=== PATIENT | male | born 1950 | race Caucasian/White ===

== ENCOUNTER 2017-02-15 22:22 | Observation (INO) | payer BC ==
[2017-02-15 22:46] LABS: #Eosinphils 0.1 thou/uL (0.0-0.7); #Lymphocytes 1.7 thou/uL (1.20-3.40); #Monocytes 0.7 thou/uL (0.11-0.59); #Neutrophils 12.3 thou/uL (1.40-6.50); %Basophils 0.1 % (0.0-1.0); %Eosinophils 0.7 % (0.0-10.0); %Lymphocytes 11.4 % (21.0-51.0); %Monocytes 4.4 % (0.0-10.0); Hematocrit 47.1 % (42.0-52.0); White Blood Cell (WBC) Count 14.8 thou/uL (4.8-10.8)
--- NOTE | 2017-02-15 23:04 | RAD ---
EXAM: CHEST ONE VIEW 02/15/17 HISTORY: Sharp chest pain and hypertension. FINDINGS: Portable upright chest demonstrates an enlarged cardiac silhouette. The pulmonary vessels are slight ly prominent. Costophrenic angles are clear. No masses or consolidation. No pneumothorax or osseous abnormalities. IMPRESSION: Cardiomegaly. Mild pulmonary vascular prominence. POS: [facility]
[2017-02-15 23:09] LABS: ALT (SGPT) 18 U/L (8-55); AST (SGOT) 15 U/L (5-34); Alkaline Phosphatase 93 U/L (40-150); Anion Gap 16 mmol/L (10-20); BUN (Urea Nitrogen) 13 mg/dL (8.4-25.7); Bilirubin, Total 0.5 mg/dL (0.2-1.2); Calc. Creatinine Clearance 0 mL/min (70-130); Calcium 9.3 mg/dL (7.8-10.44); Carbon Dioxide 29 mmol/L (23-31); Chloride 100 mmol/L (98-107); Estimated GFR-MDRD Greater than 90; Globulin 3.4 g/dL (2.4-3.5); Protein, Total 7.8 g/dL (5.8-8.1)
[2017-02-15 23:17] LABS: Troponin I Less than 0.010 ng/mL (< 0.028)
[2017-02-15] MEDS ORDERED: Mag-Al 1200 mg/1200 mg/30 ML UDCUP ONE (23:48)
[2017-02-15] MEDS ORDERED: Lidocaine Viscous Sol 2% 15 ml UD Cup ONE (23:48)
[2017-02-16] MEDS ORDERED: Nitroglycerin 0.4 MG TAB (25 Tab Bottle) ONE (00:38)
[2017-02-16] MEDS ORDERED: Nitroglycerin 2% Ointment 1 INCH/1 GM Packet ONE (00:38)
[2017-02-16] MEDS ORDERED: Enoxaparin Sodium 100 MG/ML SYRINGE ONE (00:45)
[2017-02-16] MEDS ORDERED: Enoxaparin Sodium 80 MG/0.8 ML SYRINGE ONE (01:11)
[2017-02-16] MEDS ORDERED: Enoxaparin Sodium 40 MG/0.4 ML SYRINGE ONE (01:11)
[2017-02-16 01:46] LABS: Troponin I Less than 0.010 ng/mL (< 0.028)
[2017-02-16] MEDS ORDERED: Fentanyl 100 MCG/2 ML VIAL ONE ×2 (02:42→14:00)
[2017-02-16] MEDS ORDERED: Ketorolac Tromethamine 30 MG/ML VIAL ONE (03:50)
[2017-02-16 04:42] LABS: Troponin I Less than 0.010 ng/mL (< 0.028)
[2017-02-16] MEDS ORDERED: Ondansetron HCl/PF 4 MG/2 ML Vial IVP PRN ×2 (04:58→11:39)
[2017-02-16] MEDS ORDERED: Ondansetron ODT 4 MG TAB SL PRN (04:58)
[2017-02-16] MEDS ORDERED: Acetaminophen 325 MG TAB PO PRN ×2 (04:58→11:39)
[2017-02-16] MEDS ORDERED: Nitroglycerin 2% Ointment 1 INCH/1 GM Packet TOP SCH ×2 (05:30→06:00)
--- NOTE | 2017-02-16 05:34 | PDOC.EVN ---
Event Note - Event Note Event Note: [id number] H&P Dictated 1. Chest pain 2. H/O HTN 3. H/O BPH Plan: see orders
[2017-02-16] MEDS ORDERED: Potassium Chloride 20 MEQ TAB PO SCH (05:45)
[2017-02-16 06:31] LABS: Troponin I Less than 0.010 ng/mL (< 0.028)
[2017-02-16 07:25] VITALS: BMI 38.3
--- NOTE | 2017-02-16 08:21 | HP ---
DATE OF ADMISSION: 02/16/2017 CHIEF COMPLAINT: Chest pain. HISTORY OF PRESENT ILLNESS: The patient is a 66-year-old male with past medical history of hypertension presenting complaining of chest pain. Chest pain started yesterday evening, substernal pressure kind of pain, 8/10, relieved with some pain medication. It does not radiate anywhere. Denies any nausea, denies any trouble breathing, denies any dizziness, denies lightheadedness. The patient had stress test and cardiac catheterization done last year and it was tender to palpation. Denies any fever, denies any chills, denies any cough, denies sputum production, denies any other complaints. PAST MEDICAL HISTORY: Hypertension, benign prostatic hypertrophy. PAST SURGICAL HISTORY: Colon mass removal. FAMILY HISTORY: Positive for hypertension. SOCIAL HISTORY: Reviewed. REVIEW OF SYSTEMS: CONSTITUTIONAL: Denies any fever, denies any hearing problems. Denies any hearing loss. Denies any pain. CARDIOVASCULAR: Positive for chest pain. RESPIRATORY: Denies any cough, denies dyspnea CRANIAL NERVE SYSTEM: Denies syncope. GASTROINTESTINAL: Denies any vomiting. MUSCULOSKELETAL: Denies any joint deformities INTEGUMENTARY: Denies rash. PSYCH: Denies anxiety. All other review of systems are reviewed and are negative . PHYSICAL EXAMINATION: VITAL SIGNS: At the time of H\T\P performed, blood pressure is 149/83, heart rate 104, respiration 16, pulse ox 95% on 2 liters, temperature 98.9. GENERAL: The patient appears comfortable. HEENT: Pupils are equal, round, and react. ENT is normal. Teeth intact. Tongue is moist. NECK: Supple. No JVD. CARDIOVASCULAR: S1, S2 present. Regular rate and rhythm. No murmurs, no rubs , no gallops. RESPIRATORY: No wheezing, no rhonchi. Breath sounds bilaterally. ABDOMEN: Soft, nontender, no guarding, no organomegaly, no masses felt. INTEGUMENTARY: No rashes seen. PSYCHIATRIC: Mood appears normal. MUSCULOSKELETAL: No edema. CRANIAL NERVE SYSTEM: Awake, follows command. Strength intact, sensory intact. LABORATORY DATA: Sodium 142, potassium 3.3, chloride 100, CO2 10, BUN 13, creatinine 0.83, troponin less than 0.01 x3 sets. Serum protein 7.8, albumin 4.4. White count 14.8, hemoglobin 15.5, platelet count 239. CT chest, no evidence of PE, waiting for official report. ASSESSMENT AND PLAN: The patient is a 66-year-old male. 1. Chest pain. Need to rule out cardiac etiology. Patient had a normal stress test last year per patient. We will go ahead and get Cardiology to evaluate the patient. We will wait for the CTA report also. Per ED physician there is no evidence of any dissection. We will monitor the patient closely and we will follow the CT report. 2. Hypertension. Monitor blood pressure, continue home blood pressure medications. 3. History of benign prostatic hypertrophy. Continue Flomax. 4. History of colon mass removal. stable at present The case was discussed in detail with the patient. Patient is full code. MTDD
--- NOTE | 2017-02-16 08:42 | ULT ---
PRELIMINARY REPORT/[facility]/EMERGENCY AFTER HOURS PROCEDURE: EXAM: US Duplex Left Lower Extremity Veins EXAM DATE/TIME: 02/16/2017 3:16 AM CLINICAL HISTORY: 66 years old, male; Signs and symptoms; Swelling of limb; Lower extremity, left TECHNIQUE: Real-time ultrasound scan of the veins of the left lower extremity with color Doppler flow, spectral waveform analysis and compression. COMPARISON: No relevant prior studies available. FINDINGS: Deep veins: Unremarkable. No DVT in the visualized common femoral, femoral, proximal deep femoral or popliteal veins. The veins demonstrate normal color flow, are normally compressible, with normal ph asic flow and/or augmentation response. Superficial veins: Unremarkable. No thrombus in the visualized great saphenous vein. Soft tissues: No acute findings. No popliteal cyst. IMPRESSION: Normal left lower extremity duplex venous ultrasound. Thank you for allowing us to participate in the care of your patient. Dictated and Authenticated by: Frederic Hamilton MD 02/16/2017 4:05 AM Central Time ([place] \T\ [place]) FINAL REPORT EMERGENCY AFTER HOURS STUDY ULTRASOUND WITH DOPPLER DUPLEX VENOUS LOWER EXTREMITY LEFT: HISTORY: Left lower extremity edema in 66-year-old male. TECHNIQUE: Color flow Doppler, spectral waveform analysis of pulsed Doppler, and dowling-scale imaging with compre ssion and augmentation, were used to evaluate the left common femoral, femoral, popliteal, posterior tibial, and superficial femoral, veins; and the proximal portions of the profunda femoral and great er saphenous, veins. FINDINGS: There is normal compressibility, demonstration of blood flow by color Doppler and pulsed Doppler, an d response to augmentation, in all interrogated veins. This report agrees with the preliminary report by [facility]. IMPRESSION: Negative. No deep vein thrombosis in the left lower extremity. benji[] POS: [facility]
[2017-02-16] MEDS ORDERED: Hydrochlorothiazide 25 MG TAB PO SCH (09:00)
[2017-02-16] MEDS ORDERED: Tamsulosin HCl 0.4 MG CAP PO SCH (09:00)
[2017-02-16] MEDS ORDERED: Aspirin 325 MG TAB PO SCH (09:00)
[2017-02-16] MEDS ORDERED: Cholestyramine/Aspartame 4 gm Packet PO SCH (10:00)
--- NOTE | 2017-02-16 10:06 | CT ---
PRELIMINARY REPORT/[facility]/EMERGENCY AFTER HOURS PROCEDURE: EXAM: CT Angiography Chest With Intravenous Contrast EXAM DATE/TIME: 02/16/2017 1:12 AM CLINICAL HISTORY: 66 years old, male; Pain; Chest pain; Type not specified; Patient HX: R/O pe TECHNIQUE: Axial computed tomographic angiography images of the chest with intravenous contrast using pulmonary embolism protocol. CONTRAST: 100 mL of ISOVUE administered intravenously. COMPARISON: No relevant prior studies available. FINDINGS: Pulmonary arteries: Adequate contrast enhancement of the pulmonary arteries. No evidence of filling defects in the cardiac chambers. Aorta: No evidence of aortic dissection. Chronic atherosclerotic calcification of the vasculature. Lungs: Mild bilateral lower lobe dependent air space opacity-atelectasis/scarring. No evidence endob ronchial lesion. Pleural space: No evidence of pleural effusion. No evidence of pneumothorax. Heart: Heart appears within normal limits, 3 mm pericardial effusion. Bones/joints: Musculoskeletal structures appear intact. Multi-level degenerative changes involve the thoracic spine. No acute fracture. No dislocation. Soft tissues: Unremarkable. Lymph nodes: Few subcentimeter mediastinal lymph nodes. IMPRESSION: 1. No evidence of pulmonary embolism. 2. Mild 3 mm pericardial effusion. 3. Mild bilateral lower lobe dependent air space opacity-atelectasis/scarring. Thank you for allowing us to participate in the care of your patient. Dictated and Authenticated by: Frederic Hamilton MD 02/16/2017 2:07 AM Central Time ([place] \T\ [place]) FINAL REPORT EMERGENCY AFTER HOURS STUDY: CTA THORAX WITH CONTRAST: (Computed Tomographic Angiography, chest(noncoronary) with contrast material, and image postprocessi ng) (PE protocol) HISTORY: 66-year-old male with chest pain. TECHNIQUE: IV injection of iodinated contrast: 100 mL Isovue. Scan acquisition timing attempted to coincide with iodinated contrast bolus reaching maximal density in pulmonary arteries. 3D MIP reconstructions. FINDINGS: No PE. No thoracic aortic dissection or aneurysm. Lungs are essentially clear. Cardiomegaly. Tiny pe ricardial effusion. No pleural effusion or pneumothorax. This report agrees with the preliminary report by [facility]. IMPRESSION: 1. No pulmonary thromboembolism. 2. Cardiomegaly. 3. Small pericardial effusion. benji[] POS: [facility]
[2017-02-16] MEDS ORDERED: Lidocaine 2% Viscous Solution 10 ML, Aluminum & Magnesium Hydroxide 30 ML SSW SCH ×2 (10:45)
[2017-02-16] MEDS ORDERED: Calcium Carbonate 500 MG ChewTAB PO PRN (11:39)
[2017-02-16] MEDS ORDERED: Mag-Al 1200 mg/1200 mg/30 ML UDCUP PO PRN (11:39)
[2017-02-16] MEDS ORDERED: Senokot 8.6 MG TAB PO PRN (11:39)
[2017-02-16] MEDS ORDERED: Ondansetron ODT 4 MG TAB PO PRN (11:39)
[2017-02-16 11:41] VITALS: TEMP 99
--- NOTE | 2017-02-16 12:12 | CON ---
DATE OF CONSULTATION: 02/16/2017 REFERRING PHYSICIAN: Dr. Rodriguez. REASON FOR CONSULTATION: Chest pain. PRIMARY EFFICIENCY MINER: Dr. Satish Grissom at [facility]. HISTORY OF PRESENT ILLNESS: Mr. Rucker is a 66-year-old gentleman who reports onset of ches t pressure described as something sitting on his chest, beginning late yesterday evening. It was a pressure type sensation as if someone sitting on lower aspect of his chest graded at 8/10 in severit y. He took some pain medication and it eased off a bit, but continued to come back. It was not rel ated to exertion. He is a regular patient of Dr. Satish Grissom and reports negative stress test last year. He has not h ad catheterization or stenting in the past. He follows with Dr. Grissom for risk factor modification on a yearly basis. PAST MEDICAL HISTORY: 1. Hypertension. 2. BPH. PAST SURGICAL HISTORY: Colon resection. ALLERGIES: No known drug allergies. SOCIAL HISTORY: He drinks socially. He denies illicit drug use. He denies tobacco use. He works in [place] and travels extensively. CURRENT MEDICATIONS: None. REVIEW OF SYSTEMS: As per history of present illness. Remainder of 12 system review is negative. PHYSICAL EXAMINATION: VITAL SIGNS: Blood pressure is 155/81, pulse 101 and regular, respiratory rate 20 and nonlabored, t emperature 98.8, oxygen saturations 94% on room air. GENERAL: This is a well-developed, overweight 66-year-old gentleman in no acute distress. He is alert and oriented x4. Answers questions appropriately. HEENT: Head was atraumatic, normocephalic. Pupils are equally round and reactive. Sclerae and con junctivae are clear. There are no oral lesions. NECK: Supple, no JVD, thyromegaly, carotid bruits. CHEST: Symmetrical inspiration and expiration. HEART: Regular rate and rhythm, no murmur, S3, S4. PMI is nondisplaced, not enlarged. LUNGS: Clear to auscultation in all lee. No adventitious sounds appreciated. ABDOMEN: Soft, nontender, nondistended, without mass or organomegaly. Bowel sounds are present in all 4 quadrants. No flank bruits auscultated. EXTREMITIES: 2+ pulses noted bilaterally. Upper and lower extremity strength 5/5 bilaterally. The re is no clubbing, cyanosis or edema. NEUROLOGIC: Grossly intact. No focal motor deficits appreciated. DATABASE: EKG reveals sinus rhythm with nonspecific ST changes. There is a questionable old inferior infarct, age indeterminate. LABORATORY DATA: CBC reveals white count of 14, hemoglobin and hematocrit of 15 and 47, platelet co unt 239,000. Differential white blood cells normal. Red cell indices normocytic. Chemistries: Electrolytes normal, BUN and creatinine 13 and 0.8. GFR is estimated greater than 90, glucose 124. LFTs are normal. Serial cardiac enzymes are negative. ASSESSMENT: 1. Chest pain syndrome with typical and atypical features for angina. 2. Hypertension, no current therapy. RECOMMENDATIONS: From a cardiac standpoint, he appears stable and his symptoms persist despite anti anginal therapies. Due to many atypical features of angina, I have opted to monitor this with initi ation of proton pump inhibitor and a GI cocktail for the next 2-3 hours. If this symptoms persist, we will consider a direct invasive approach and evaluation with diagnostic angiogram via radial appr [facility]. We discussed these options and he agrees to move forward with a more invasive strategy if sym ptoms persist despite these medications. Nursing will call with the status update in couple of hour s. I appreciate the opportunity to participate.
[2017-02-16] MEDS ORDERED: Communication Order-Pharmacy FS SCH (12:30)
[2017-02-16] MEDS ORDERED: Diazepam 5 MG TAB PO SCH (12:30)
[2017-02-16] MEDS ORDERED: Sodium Chloride 0.9% 1,000 ML IV SCH (12:30)
[2017-02-16 12:41] LABS: Troponin I 0.017 ng/mL (< 0.028)
[2017-02-16] MEDS ORDERED: Nitroglycerin 100MG/250ML BOT 250 ML ONE (13:37)
[2017-02-16] MEDS ORDERED: Heparin 10,000 UNITS/1 ML VIAL ONE (13:37)
[2017-02-16] MEDS: Potassium Chloride 10 MEQ TAB PO SCH ×2 (13:43→17:40)
[2017-02-16] MEDS ORDERED: Midazolam HCl 2 mg/2 ml Vial ONE (14:01)
[2017-02-16] MEDS ORDERED: Nitroglycerin 0.4 MG TAB (25 Tab Bottle) SL PRN (14:22)
[2017-02-16] MEDS ORDERED: traMADol HCl 50 MG TAB PO PRN (14:22)
[2017-02-16] MEDS ORDERED: Acetaminophen/Codeine 30-300mg Tablet PO PRN ×2 (14:22)
[2017-02-16] MEDS ORDERED: Sodium Chloride 0.9% 200 ML IV PRN (14:30)
[2017-02-16] MEDS ORDERED: ISOVUE-370 76%-LOCM 1 ML ONE (16:45)
[2017-02-16 17:39] VITALS: BP 139/73
[2017-02-16] MEDS ORDERED: Famotidine 20 MG TAB PO SCH (21:00)
--- NOTE | 2017-02-17 09:04 | DIS ---
DATE OF ADMISISON: 02/16/2017 DATE OF DISCHARGE: 02/16/2017 DISCHARGE DISPOSITION: Home. FOLLOWUP: Follow up with primary care physician at [facility] in 1 week. INPATIENT CONSULTANTS: Cardiology, Dr. Herman. DISCHARGE MEDICATIONS: 1. Questran 1 packet daily. 2. Clonidine 0.2 mg b.i.d. 3. Toprol-XL 50 mg daily. 4. Olmesartan/HCTZ 40/25 daily. 5. Flomax 0.4 mg daily. 6. Amlodipine 10 mg daily. 7. Protonix 40 mg daily (new medications) BRIEF HOSPITAL COURSE: Patient is a 66-year-old male with hypertension who presented to the emergen cy room with chest discomfort. Please refer to the history and physical for further details. The patient was admitted to the hospital with the diagnosis of chest discomfort, rule out acute johann nary syndrome. Serial cardiac enzymes were normal. Due to ongoing chest pain, the patient was seen by Cardiology. He underwent cardiac catheterization that showed no flow limiting disease. His LAD , left circumflex, RCA and left main was normal. His symptoms are probably noncardiac. PPIs have b een added to his regimen. Pulmonary embolism was ruled out in the emergency room by his CT angiogra m of the chest. There was also mild 3 mm pericardial effusion of unclear significance. Echocardiog maggie has been done, the report of which is pending at this time. He was advised to follow up with Ca rdiology as outpatient for the echocardiogram report. He was advised not to take any nonsteroidal a nti-inflammatory drugs. FINAL DIAGNOSES: 1. Chest discomfort, acute coronary syndrome ruled out. 2. Negative cardiac catheterization. 3. Obesity with a BMI 38.3. 4. Hypokalemia, replaced. Repeat base met in 1 week is recommended. Primary care physician is adv ised to follow. 5. Benign prostatic hypertrophy. Plan of care was discussed with the patient and he stated understanding.
--- NOTE | 2017-02-23 11:56 | EKG ---
Test Reason : CHEST PAIN Blood Pressure : / mmHG Vent. Rate : 084 BPM Atrial Rate : 084 BPM P-R Int : 178 ms QRS Dur : 104 ms QT Int : 374 ms P-R-T Axes : 048 -27 041 degrees QTc Int : 441 ms Normal sinus rhythm Inferior infarct , age undetermined Abnormal ECG Confirmed by CAROL KELLEY MD ([id number]), image editor KATINA CAO ([id number]) on 02/23/2017 11:55:29 AM Referred By: ORLY KELLEY Confirmed By:CAROL KELLEY MD
--- NOTE | 2017-02-23 11:56 | EKG ---
Test Reason : CHEST PAIN Blood Pressure : / mmHG Vent. Rate : 087 BPM Atrial Rate : 087 BPM P-R Int : 168 ms QRS Dur : 102 ms QT Int : 362 ms P-R-T Axes : 030 -31 047 degrees QTc Int : 435 ms Normal sinus rhythm Left axis deviation Inferior infarct , age undetermined Abnormal ECG Confirmed by WARREN ELAINE, CAROL (41), makeup editor KATINA CAO (40) on 02/23/2017 11:55:22 AM Referred By: Confirmed By:CAROL KELLEY MD
== END 2017-02-16 17:45 | disposition home or self-care (01) ==
LOC: ERS 22:22 → 2SW 02-16 03:00
PROVIDERS: ADMIT Internal Medicine; ATTEND Internal Medicine
DX: R07.89 Other chest pain (principal); I10 Essential (primary) hypertension; E87.6 Hypokalemia; N40.0 Benign prostatic hyperplasia without lower urinary tract symptoms; E66.9 Obesity, unspecified; Z68.38 Body mass index [BMI] 38.0-38.9, adult; Z79.899 Other long term (current) drug therapy; Z90.49 Acquired absence of other specified parts of digestive tract; Z87.891 Personal history of nicotine dependence
CPT/HCPCS: 36415; 71010; 71275; 80053; 82550; 82553; 84484; 85025; 93005; 93010; 93306; 93458; 94760; 96372; 96374; 96375; 96376; 99152; A4216; C1769; G0378; J1644; J1650; J1885; J2250; J2270; J3010

== ENCOUNTER 2017-03-11 10:43 | Outpatient (CLI) | payer BC ==
--- NOTE | 2017-03-11 15:08 | ULT ---
ULTRASOUND ABDOMEN: Date: 03/11/17 HISTORY: Nausea, vomiting, and epigastric pain. FINDINGS: The liver demonstrates homogeneous echotexture without focal mass or intrahepatic ductal dilatation. Spleen is normal measuring 12.4 cm in length. No gallstones, gallbladder wall thickening, or perich olecystic fluid is seen. The common duct measures 7.0 mm in diameter. No hydronephrosis seen on eith er side. Bilateral renal cysts are present. One of these has a thin septation, measures 3.8 cm, and located at the superior pole of the right kidney. No free fluid is seen. The visualized portions of the pancreas, aorta, and IVC are unremarkable. IMPRESSION: 1. No evidence of cholelithiasis. 2. Bilateral renal cysts. POS: [facility]
--- OUTSIDE RECORDS SUMMARY | 2017-03-13 18:50 | XMS | Clinical Summary ---
:1950 Author Organization [facility] Address [address] [place] [address] Phone Care Team Providers Name Role Phone , Primary Care Provider Unavailable Allergies Not on File Current Medications Not on file Active Problems Not on file Social History Tobacco Use Types Packs/Day Years Used Date Never Assessed Sex Assigned at Date Recorded Not on file Last Filed Vital Signs Not on file Plan of Treatment Date Type Specialty Care Team Description 04/03/2017 Surgery Gastroenterology Bryant Yan, ESOPHAGEAL MANOMETRY WITH IMPEDANCE PROBE [address] [place] [address] [place] [address] [id number] 04/03/2017 Procedure Pass Gastroenterology 04/03/2017 Hospital Encounter Gastroenterology Bryant Yan MD [address] [place] [address] [place] [id number] [phone] 04/04/2017 Surgery Gastroenterology Bryant Yan, ESOPHAGEAL MANOMETRY WITH IMPEDANCE PROBE [address] [facility] [address] [place] [id number] [phone] 04/04/2017 Procedure Pass Gastroenterology 04/04/2017 Hospital Encounter Gastroenterology Bryant Yan MD [address] [place] [address] [place] [id number] [phone] Results Not on filefrom Last 3 Months Insurance Payer Benefit Plan / Group Subscriber ID Type Phone Address BCBS BCBS CHOICE PPO/[employer] PPO [id number] PPO
== END 2017-03-11 10:44 | disposition home or self-care (01) ==
LOC: ULT 10:43
PROVIDERS: ATTEND Nurse Practitioner Family
DX: R10.13 Epigastric pain (principal); Q61.02 Congenital multiple renal cysts
CPT/HCPCS: 76700

== ENCOUNTER 2020-06-20 09:21 | Outpatient (CLI) | payer MEDICARE, OTHER ==
--- NOTE | 2020-06-20 10:36 | RAD ---
RIGHT SHOULDER 3 VIEWS: Date: 06/20/2020 HISTORY: Right shoulder pain. FINDINGS/IMPRESSION: There are degenerative changes in the acromioclavicular joint. No fracture or dislocation or bony mariella truction seen. POS: [facility]
== END 2020-06-20 09:22 | disposition home or self-care (01) ==
LOC: RAD-FRANK 09:21
PROVIDERS: ATTEND Nurse Practitioner Family
DX: M25.511 Pain in right shoulder (principal); M19.011 Primary osteoarthritis, right shoulder

== ENCOUNTER 2020-09-09 08:29 | Outpatient (CLI) | payer MEDICARE, OTHER | END 2020-09-09 08:30 | disposition home or self-care (01) | LOC: RAD-FRANK 08:29 | PROVIDERS: ATTEND Nurse Practitioner Family | DX: R07.9 Chest pain, unspecified (principal) | CPT/HCPCS: 71046 ==

== ENCOUNTER 2022-02-27 13:34 | Outpatient (CLI) | payer MEDICARE, OTHER | END 2022-02-27 13:35 | disposition home or self-care (01) | LOC: RAD-FRANK 13:34 | PROVIDERS: ATTEND Nurse Practitioner Family | DX: M25.531 Pain in right wrist (principal) ==

== ENCOUNTER 2022-12-20 10:22 | Outpatient (CLI) | payer MEDICARE, OTHER | END 2022-12-20 10:23 | disposition home or self-care (01) | LOC: RAD-FRANK 10:22 | PROVIDERS: ATTEND Nurse Practitioner Family | DX: R42 Dizziness and giddiness (principal); H53.9 Unspecified visual disturbance | CPT/HCPCS: 71046 ==